=== PATIENT | female | born 1980 | race Hispanic/Latino ===

== ENCOUNTER 2022-03-23 08:34 | Outpatient (CLI) | payer OTHER | END 2022-03-23 08:35 | disposition home or self-care (01) | LOC: CSHLAB 08:34 | PROVIDERS: ATTEND Internal Medicine Gastroenterology | DX: Z20.822 Contact with and (suspected) exposure to COVID-19 (principal); K62.5 Hemorrhage of anus and rectum | CPT/HCPCS: 87811 ==

== ENCOUNTER 2022-03-26 09:45 | Day surgery (SDC) | payer OTHER ==
[2022-03-25 10:02] VITALS: BMI 27.4
[2022-03-26] MEDS ORDERED: Lidocaine 1% PF 5 ML VIAL ONE (11:38)
[2022-03-26] MEDS ORDERED: PROPOFOL 20 ML ONE ×4 (11:39→12:19)
[2022-03-26] MEDS ORDERED: PROPOFOL 40 ML ONE (11:39)
[2022-03-26] MEDS ORDERED: PHENYLEPHRINE-NS 100 MCG/ML 10 ML SYRINGE ONE (11:58)
== END 2022-03-26 13:06 | disposition home or self-care (01) ==
LOC: CSHSDC 09:45
PROVIDERS: ATTEND Internal Medicine Gastroenterology
PROC: 0DBN8ZZ Excision of Sigmoid Colon, Via Natural or Artificial Opening Endoscopic (ICD-10-PCS; principal; 2022-03-26)
PROC: 0DBP8ZZ Excision of Rectum, Via Natural or Artificial Opening Endoscopic (ICD-10-PCS; principal; 2022-03-26)
DX: K62.5 Hemorrhage of anus and rectum (principal); K52.9 Noninfective gastroenteritis and colitis, unspecified; K64.9 Unspecified hemorrhoids; Z88.0 Allergy status to penicillin; Z20.822 Contact with and (suspected) exposure to COVID-19
CPT/HCPCS: 88305; 93005; 93010; J2704